=== PATIENT | male | born 1945 | race Caucasian/White ===

== ENCOUNTER → 2023-09-07 06:35 | Day surgery (SDC) | payer MEDICARE, SELFPAY | LOC: GI 06:35 | PROVIDERS: ATTENDING PHYSICIAN Specialist | DX: R19.4 Change in bowel habit (principal); Z12.11 Encounter for screening for malignant neoplasm of colon; Z86.010 Personal history of colon polyps; K57.30 Diverticulosis of large intestine without perforation or abscess without bleeding; K64.8 Other hemorrhoids; D12.2 Benign neoplasm of ascending colon; D12.3 Benign neoplasm of transverse colon; D12.4 Benign neoplasm of descending colon; K63.5 Polyp of colon; R13.10 Dysphagia, unspecified; K22.2 Esophageal obstruction; K44.9 Diaphragmatic hernia without obstruction or gangrene; K31.7 Polyp of stomach and duodenum; T18.2XXA Foreign body in stomach, initial encounter; K22.89 Other specified disease of esophagus; K31.89 Other diseases of stomach and duodenum; R12 Heartburn; K29.80 Duodenitis without bleeding; K29.50 Unspecified chronic gastritis without bleeding | CPT/HCPCS: 43249; 45385; 45380; 43239; 88305; 88342 ==

== ENCOUNTER → 2023-09-20 11:28 | Outpatient (REF) | payer MEDICARE, SELFPAY ==
[2023-09-20 12:46] LABS: Blood Urea Nitrogen 25 mg/dl (9-20); Carbon Dioxide 25 mmol/L (22-30); Chloride 102 mmol/L (98-107); Glucose 87 mg/dl (70-99); Potassium 4.5 mmol/L (3.5-5.1); Sodium 136 mmol/L (135-145); eGFR 51.13
== END ==
LOC: REG 11:28
PROVIDERS: ATTENDING PHYSICIAN Specialist; FAMILY PHYSICIAN Family Medicine
DX: R14.0 Abdominal distension (gaseous) (principal)
CPT/HCPCS: 36415; 80048

== ENCOUNTER → 2023-09-22 12:22 | Outpatient (REF) | payer MEDICARE, SELFPAY | LOC: RAD 12:22 | PROVIDERS: ATTENDING PHYSICIAN Specialist; FAMILY PHYSICIAN Family Medicine | DX: R14.0 Abdominal distension (gaseous) (principal); R68.81 Early satiety; R10.84 Generalized abdominal pain | CPT/HCPCS: 74177; Q9967 ==

== ENCOUNTER → 2023-11-03 12:30 | Outpatient (REF) | payer MEDICARE, SELFPAY ==
[2023-11-03 13:15] LABS: % Basophils 0.9 % (0-2); % Eosinophils 2.2 % (0-6); % Immature Granulocytes 0.5 % (0-0.5); % Lymphocytes 26.4 % (20.5-51.1); % Monocytes 7.8 % (1.7-9.3); % Neutrophils 62.2 % (42.2-75.2); Absolute Basophils 0.1 10^3/uL (0-0.2); Absolute Eosinophils 0.1 10^3/uL (0-0.7); Absolute Lymphocytes 1.7 10^3/uL (1.2-3.4); Absolute Monocytes 0.5 10^3/uL (0.1-0.6); Absolute Neutrophils 4.1 10^3/uL (1.4-6.5); Hematocrit 41.1 % (39.0-52.0); Hemoglobin 14.1 g/dL (13.0-18.0); Mean Corp Hgb Conc. 34.3 g/dL (33.0-37.0); Mean Corpuscular Hgb 29.4 pg (27.0-31.0); Mean Corpuscular Volume 85.8 fL (80.0-94.0); Mean Platelet Volume 11.2 fL (7.4-10.4); Nucleated Red Blood Cells % 0 % (-); Platelet Count 211 10^3/uL (130-400); Red Blood Cell Count 4.79 10^6/uL (4.70-6.10); White Blood Cell Count 6.5 10^3/uL (4.8-10.8)
[2023-11-03 13:44] LABS: ALT (SGPT) 12 U/L (0-50); AST (SGOT) 23 U/L (17-59); Albumin 4.4 g/dl (3.5-5.0); Alkaline Phosphatase 76 U/L (38-126); Blood Urea Nitrogen 25 mg/dl (9-20); Calcium 9.8 mg/dl (8.4-10.2); Carbon Dioxide 21 mmol/L (22-30); Chloride 106 mmol/L (98-107); Glucose 88 mg/dl (70-99); HDL Cholesterol 45 mg/dl; LDL Cholesterol, Calculated 62 mg/dl; Phosphorus 3.4 mg/dl (2.5-4.5); Potassium 4.9 mmol/L (3.5-5.1); Sodium 135 mmol/L (135-145); Total Bilirubin 1.3 mg/dl (0.2-1.3); Total Cholesterol 145 mg/dl (50-199); Total Protein 7.5 g/dl (6.3-8.2); Triglyceride 192 mg/dl (10-149); Very Low Density Lipoprotein 38 mg/dl (0-30); eGFR 47.06
[2023-11-03 13:53] LABS: Protein/creatinine Ratio 0.1; Urine Protein 10 mg/dl
[2023-11-03 13:58] LABS: Microalbumin, Random Urine 3.3 mg/dl (0.6-1.7)
[2023-11-04 18:07] LABS: Intact PTH 74.1 pg/ml (13.6-85.8)
== END ==
LOC: REG 12:30
PROVIDERS: ATTENDING PHYSICIAN Specialist; FAMILY PHYSICIAN Family Medicine
DX: N18.31 Chronic kidney disease, stage 3a (principal); N18.30 Chronic kidney disease, stage 3 unspecified; E78.5 Hyperlipidemia, unspecified; D47.2 Monoclonal gammopathy
CPT/HCPCS: 36415; 80053; 80061; 82043; 82570; 83970; 84100; 84156; 85025

== ENCOUNTER → 2023-12-01 09:56 | Outpatient (REF) | payer MEDICARE, SELFPAY ==
[2023-12-01 12:13] LABS: Albumin 4.5 g/dl (3.5-5.0); Blood Urea Nitrogen 26 mg/dl (9-20); Calcium 9.8 mg/dl (8.4-10.2); Carbon Dioxide 24 mmol/L (22-30); Chloride 101 mmol/L (98-107); Glucose 97 mg/dl (70-99); Phosphorus 3.4 mg/dl (2.5-4.5); Potassium 5.2 mmol/L (3.5-5.1); Sodium 137 mmol/L (135-145); eGFR 47.06
[2023-12-01 12:54] LABS: PSA, Total - Diagnostic 2.29 ng/ml (0.0-4.0)
== END ==
LOC: REG 09:56
PROVIDERS: ATTENDING PHYSICIAN Specialist; FAMILY PHYSICIAN Specialist
DX: R97.20 Elevated prostate specific antigen [PSA] (principal); I10 Essential (primary) hypertension; N26.9 Renal sclerosis, unspecified
CPT/HCPCS: 36415; 80069; 84153

== ENCOUNTER → 2024-02-13 10:54 | Outpatient (REF) | payer MEDICARE, SELFPAY ==
[2024-02-13 11:27] LABS: Hematocrit 39.4 % (39.0-52.0); Hemoglobin 13.6 g/dL (13.0-18.0)
[2024-02-13 11:58] LABS: Protein/creatinine Ratio 0.3; Urine Protein 14 mg/dl
[2024-02-13 12:16] LABS: Albumin 4.6 g/dl (3.5-5.0); Blood Urea Nitrogen 23 mg/dl (9-20); Calcium 9.5 mg/dl (8.4-10.2); Carbon Dioxide 26 mmol/L (22-30); Chloride 104 mmol/L (98-107); Glucose 91 mg/dl (70-99); Potassium 4.7 mmol/L (3.5-5.1); Sodium 136 mmol/L (135-145); eGFR 47.06
[2024-02-13 12:42] LABS: PSA, Total - Diagnostic 2.39 ng/ml (0.0-4.0)
== END ==
LOC: REG 10:54
PROVIDERS: ATTENDING PHYSICIAN Specialist; FAMILY PHYSICIAN Family Medicine; REFERRING PHYSICIAN Specialist
DX: I10 Essential (primary) hypertension (principal); N26.9 Renal sclerosis, unspecified; E78.5 Hyperlipidemia, unspecified; E03.9 Hypothyroidism, unspecified; R97.20 Elevated prostate specific antigen [PSA]
CPT/HCPCS: 36415; 80069; 82570; 84153; 84156; 85014; 85018

== ENCOUNTER → 2024-03-25 09:02 | Outpatient (REF) | payer MEDICARE, SELFPAY ==
[2024-03-25 09:54] LABS: % Eosinophils 3.4 % (0-6); % Immature Granulocytes 0.8 % (0-0.5); % Lymphocytes 23.9 % (20.5-51.1); % Monocytes 8.5 % (1.7-9.3); % Neutrophils 62.4 % (42.2-75.2); Absolute Basophils 0.1 10^3/uL (0-0.2); Absolute Eosinophils 0.3 10^3/uL (0-0.7); Absolute Immature Granulocytes 0.1 10^3/uL (0-0.05); Absolute Lymphocytes 1.8 10^3/uL (1.2-3.4); Absolute Monocytes 0.6 10^3/uL (0.1-0.6); Absolute Neutrophils 4.6 10^3/uL (1.4-6.5); Hematocrit 40.7 % (39.0-52.0); Hemoglobin 13.7 g/dL (13.0-18.0); Mean Corp Hgb Conc. 33.7 g/dL (33.0-37.0); Mean Corpuscular Hgb 28.8 pg (27.0-31.0); Mean Corpuscular Volume 85.5 fL (80.0-94.0); Mean Platelet Volume 11.3 fL (7.4-10.4); Nucleated Red Blood Cells % 0 % (-); Platelet Count 206 10^3/uL (130-400); Red Blood Cell Count 4.76 10^6/uL (4.70-6.10); Red Cell Dist. Width 13.1 % (11.5-14.5); White Blood Cell Count 7.3 10^3/uL (4.8-10.8)
[2024-03-25 10:24] LABS: ALT (SGPT) 15 U/L (0-50); AST (SGOT) 22 U/L (17-59); Albumin 4.4 g/dl (3.5-5.0); Alkaline Phosphatase 61 U/L (38-126); Blood Urea Nitrogen 28 mg/dl (9-20); Calcium 9.7 mg/dl (8.4-10.2); Carbon Dioxide 27 mmol/L (22-30); Chloride 103 mmol/L (98-107); Glucose 96 mg/dl (70-99); HDL Cholesterol 46 mg/dl; LDL Cholesterol, Calculated 75 mg/dl; Potassium 4.7 mmol/L (3.5-5.1); Sodium 140 mmol/L (135-145); Total Bilirubin 0.9 mg/dl (0.2-1.3); Total Cholesterol 165 mg/dl (50-199); Total Protein 7.2 g/dl (6.3-8.2); Triglyceride 223 mg/dl (10-149); Very Low Density Lipoprotein 44 mg/dl (0-30); eGFR 47.06
[2024-03-25 10:42] LABS: Vitamin D, 25-OH*** 42.3 ng/mL (30-80)
[2024-03-25 10:55] LABS: TSH Reflex To Free T4 0.59 uIU/ml (0.47-4.68)
[2024-03-27 23:57] LABS: Albumin 4.21 g/dL (3.75-5.01); Alpha 1 Globulin 0.28 g/dL (0.19-0.46); Alpha 2 Globulin 0.61 g/dL (0.48-1.05); Free Kappa Light Chains,Quant 65.18 mg/L (3.30-19.40); Free Lambda Light Chains,Quant 26.17 mg/L (5.71-26.30); IgA 276 mg/dL (68-408); IgG 1253 mg/dL (768-1632); IgM 42 mg/dL (35-263); Immunofixation Electrophoresis IFE Done; Kappa/Lambda Fr Light Ratio 2.49 (0.26-1.65); Total Protein-Electrophoresis 7.3 g/dL (6.3-8.2)
== END ==
LOC: REG 09:02
PROVIDERS: ATTENDING PHYSICIAN Internal Medicine Hematology & Oncology; FAMILY PHYSICIAN Family Medicine
DX: N18.30 Chronic kidney disease, stage 3 unspecified (principal); E78.5 Hyperlipidemia, unspecified; D47.2 Monoclonal gammopathy; Z13.29 Encounter for screening for other suspected endocrine disorder; E55.9 Vitamin D deficiency, unspecified; D50.9 Iron deficiency anemia, unspecified
CPT/HCPCS: 36415; 80053; 80061; 82232; 82306; 82784; 83521; 84155; 84165; 84443; 85025; 86334

== ENCOUNTER → 2024-07-10 17:17 | Outpatient (REF) | payer MEDICARE, SELFPAY | LOC: RCS 17:17 | PROVIDERS: ATTENDING PHYSICIAN Internal Medicine Cardiovascular Disease; FAMILY PHYSICIAN Family Medicine | DX: I10 Essential (primary) hypertension (principal); I35.1 Nonrheumatic aortic (valve) insufficiency | CPT/HCPCS: 93306 ==

== ENCOUNTER → 2024-07-29 10:58 | Outpatient (REF) | payer MEDICARE, SELFPAY ==
[2024-07-29 12:21] LABS: Protein/creatinine Ratio 0.9; Urine Protein 24 mg/dl
[2024-07-29 12:32] LABS: Albumin 5.2 g/dl (3.5-5.0); Blood Urea Nitrogen 20 mg/dl (9-20); Calcium 9.3 mg/dl (8.4-10.2); Carbon Dioxide 28 mmol/L (22-30); Chloride 101 mmol/L (98-107); Glucose 92 mg/dl (70-99); Phosphorus 2.9 mg/dl (2.5-4.5); Potassium 4.6 mmol/L (3.5-5.1); Sodium 139 mmol/L (135-145); Uric Acid 7.5 mg/dl (3.5-8.5); eGFR 47.06
[2024-07-29 12:42] LABS: Intact PTH 80.7 pg/ml (13.6-85.8)
[2024-07-29 13:12] LABS: PSA, Total - Diagnostic 2.49 ng/ml (0.0-4.0)
== END ==
LOC: REG 10:58
PROVIDERS: ATTENDING PHYSICIAN Specialist; FAMILY PHYSICIAN Family Medicine; REFERRING PHYSICIAN Specialist
DX: E78.5 Hyperlipidemia, unspecified (principal); I10 Essential (primary) hypertension; N26.9 Renal sclerosis, unspecified; R97.20 Elevated prostate specific antigen [PSA]
CPT/HCPCS: 36415; 80069; 82570; 83970; 84153; 84156; 84550

== ENCOUNTER → 2024-09-10 10:51 | Outpatient (REF) | payer MEDICARE, SELFPAY ==
[2024-09-10 12:24] LABS: Blood Urea Nitrogen 23 mg/dl (9-20); Calcium 9.5 mg/dl (8.4-10.2); Carbon Dioxide 25 mmol/L (22-30); Chloride 102 mmol/L (98-107); Glucose 91 mg/dl (70-99); Potassium 4.6 mmol/L (3.5-5.1); Sodium 137 mmol/L (135-145); eGFR 46.77
== END ==
LOC: REG 10:51
PROVIDERS: ATTENDING PHYSICIAN Specialist; FAMILY PHYSICIAN Family Medicine
DX: N18.31 Chronic kidney disease, stage 3a (principal)
CPT/HCPCS: 36415; 80048

== ENCOUNTER → 2024-12-04 10:48 | Outpatient (REF) | payer MEDICARE, SELFPAY ==
[2024-12-04 12:03] LABS: Protein/creatinine Ratio 0.7; Urine Protein 17 mg/dl
[2024-12-04 13:27] LABS: Albumin 4.4 g/dl (3.5-5.0); Blood Urea Nitrogen 22 mg/dl (9-20); Calcium 9.2 mg/dl (8.4-10.2); Carbon Dioxide 22 mmol/L (22-30); Chloride 110 mmol/L (98-107); Glucose 87 mg/dl (70-99); Potassium 4.6 mmol/L (3.5-5.1); Sodium 139 mmol/L (135-145); eGFR 46.77
== END ==
LOC: REG 10:48
PROVIDERS: ATTENDING PHYSICIAN Specialist; FAMILY PHYSICIAN Family Medicine
DX: I10 Essential (primary) hypertension (principal); N28.1 Cyst of kidney, acquired; N18.31 Chronic kidney disease, stage 3a; R80.9 Proteinuria, unspecified
CPT/HCPCS: 36415; 80069; 82570; 84156

== ENCOUNTER → 2025-03-18 11:17 | Outpatient (REF) | payer MEDICARE, SELFPAY ==
[2025-03-18 12:12] LABS: Urine Character Clear (Clear)
[2025-03-18 12:18] LABS: Hematocrit 43.9 % (39.0-52.0); Hemoglobin 14.7 g/dL (13.0-18.0); Mean Corp Hgb Conc. 33.5 g/dL (33.0-37.0); Mean Corpuscular Volume 86.2 fL (80.0-94.0); Nucleated Red Blood Cells % 0 % (-); Platelet Count 201 10^3/uL (130-400); Red Cell Dist. Width 13.2 % (11.5-14.5)
[2025-03-18 12:49] LABS: ALT (SGPT) 17 U/L (0-50); AST (SGOT) 23 U/L (17-59); Albumin 4.7 g/dl (3.5-5.0); Alkaline Phosphatase 73 U/L (38-126); Blood Urea Nitrogen 20 mg/dl (9-20); Calcium 9.4 mg/dl (8.4-10.2); Carbon Dioxide 27 mmol/L (22-30); Chloride 103 mmol/L (98-107); Glucose 95 mg/dl (70-99); Potassium 4.8 mmol/L (3.5-5.1); Sodium 138 mmol/L (135-145); Total Protein 8.0 g/dl (6.3-8.2); eGFR 43.29
[2025-03-18 13:14] LABS: PSA, Total - Diagnostic 2.99 ng/ml (0.0-4.0)
== END ==
LOC: REG 11:17
PROVIDERS: ATTENDING PHYSICIAN Internal Medicine Hematology & Oncology; FAMILY PHYSICIAN Family Medicine; OTHER PHYSICIAN Specialist; REFERRING PHYSICIAN Specialist
DX: D50.9 Iron deficiency anemia, unspecified (principal); D47.2 Monoclonal gammopathy; R97.20 Elevated prostate specific antigen [PSA]; N18.31 Chronic kidney disease, stage 3a; N40.0 Benign prostatic hyperplasia without lower urinary tract symptoms
CPT/HCPCS: 36415; 80053; 81003; 82232; 82570; 82784; 83521; 83970; 84100; 84153; 84155; 84156; 84165; 85025; 86334

== ENCOUNTER → 2025-04-18 10:53 | Outpatient (REF) | payer MEDICARE, SELFPAY ==
[2025-04-18 11:54] LABS: Hematocrit 45.0 % (39.0-52.0); Hemoglobin 14.5 g/dL (13.0-18.0); Mean Corp Hgb Conc. 32.2 g/dL (33.0-37.0); Mean Corpuscular Volume 88.9 fL (80.0-94.0); Nucleated Red Blood Cells % 0 % (-); Platelet Count 222 10^3/uL (130-400); Red Cell Dist. Width 13.4 % (11.5-14.5)
[2025-04-18 12:36] LABS: ALT (SGPT) 13 U/L (0-50); AST (SGOT) 18 U/L (17-59); Albumin 4.5 g/dl (3.5-5.0); Alkaline Phosphatase 68 U/L (38-126); Blood Urea Nitrogen 23 mg/dl (9-20); Calcium 9.3 mg/dl (8.4-10.2); Carbon Dioxide 26 mmol/L (22-30); Chloride 104 mmol/L (98-107); Glucose 88 mg/dl (70-99); HDL Cholesterol 42 mg/dl; LDL Cholesterol, Calculated 58 mg/dl; Potassium 4.7 mmol/L (3.5-5.1); Sodium 137 mmol/L (135-145); Total Protein 7.3 g/dl (6.3-8.2); Very Low Density Lipoprotein 37 mg/dl (0-30); eGFR 46.77
== END ==
LOC: REG 10:53
PROVIDERS: ATTENDING PHYSICIAN Family Medicine
DX: N18.30 Chronic kidney disease, stage 3 unspecified (principal); Z13.1 Encounter for screening for diabetes mellitus; E78.5 Hyperlipidemia, unspecified; D47.2 Monoclonal gammopathy; R53.83 Other fatigue; E03.9 Hypothyroidism, unspecified
CPT/HCPCS: 36415; 80053; 80061; 84443; 85025

== ENCOUNTER → 2025-05-12 13:36 | Outpatient (REF) | payer MEDICARE, SELFPAY | LOC: RCS 13:36 | PROVIDERS: ATTENDING PHYSICIAN Family Medicine | DX: I77.819 Aortic ectasia, unspecified site (principal); R06.09 Other forms of dyspnea | CPT/HCPCS: 93306 ==